=== PATIENT | female | born 1950 | race Asian ===

== ENCOUNTER 2017-07-26 06:08 | Emergency (ER) | payer OTHER ==
[~2017-07-26] VITALS: Ht 167.6 cm; Wt 53.5 kg
[2017-07-26 06:20] VITALS: BP 126/68; TEMP 97.7
== END 2017-07-26 07:38 | disposition home or self-care (01) ==
LOC: ED 06:08
DX: S42.212A Unspecified displaced fracture of surgical neck of left humerus, initial encounter for closed fracture (principal); W01.198A Fall on same level from slipping, tripping and stumbling with subsequent striking against other object, initial encounter; Y92.098 Other place in other non-institutional residence as the place of occurrence of the external cause
CPT/HCPCS: 96372; 99283; J1885

== ENCOUNTER 2017-07-29 13:39 | Emergency (ER) | payer OTHER ==
[~2017-07-29] VITALS: Ht 167.6 cm; Wt 54.4 kg
[2017-07-29 13:47] VITALS: TEMP 98.4
[2017-07-29 14:56] VITALS: BP 167/71
== END 2017-07-29 14:56 | disposition home or self-care (01) ==
LOC: ED 13:39
DX: M25.512 Pain in left shoulder (principal)
CPT/HCPCS: 99282

== ENCOUNTER 2018-08-28 14:39 | Emergency (ER) | payer OTHER ==
[~2018-08-28] VITALS: Ht 167.6 cm; Wt 54.4 kg
[2018-08-28 14:50] VITALS: BP 161/61; TEMP 97.6
[2018-08-28 15:42] LABS: PLATELET COUNT 208 K/uL (152-353)
[2018-08-28 16:06] LABS: POTASSIUM 3.8 mmol/L (3.6-5.2)
== END 2018-08-28 16:30 | disposition home or self-care (01) ==
LOC: ED 14:39
DX: B37.0 Candidal stomatitis (principal); E11.9 Type 2 diabetes mellitus without complications
CPT/HCPCS: 36415; 80053; 85027; 87070; 87077; 87186; 99283

== ENCOUNTER 2019-03-01 15:06 | Emergency (ER) | payer OTHER ==
[~2019-03-01] VITALS: Ht 167.6 cm; Wt 51.7 kg
[2019-03-01 15:20] VITALS: TEMP 99.2
[2019-03-01 16:54] VITALS: BP 132/67
== END 2019-03-01 16:54 | disposition home or self-care (01) ==
LOC: ED 15:06
DX: S90.421A Blister (nonthermal), right great toe, initial encounter (principal)
CPT/HCPCS: 90471; 90715; 96372; 99283; J0696

== ENCOUNTER 2019-03-05 09:58 | Emergency (ER) | payer OTHER ==
[~2019-03-05] VITALS: Ht 167.6 cm; Wt 52.2 kg
[2019-03-05 10:12] VITALS: BP 156/84; TEMP 98.1
== END 2019-03-05 10:44 | disposition home or self-care (01) ==
LOC: ED 09:58
DX: Z51.89 Encounter for other specified aftercare (principal); S90.421D Blister (nonthermal), right great toe, subsequent encounter

== ENCOUNTER 2022-11-04 00:13 | Emergency (ER) | payer OTHER ==
[~2022-11-04] VITALS: Ht 167.6 cm; Wt 52.2 kg
[2022-11-04 01:36] LABS: PLATELET COUNT 166 K/uL (152-353)
[2022-11-04 01:44] LABS: POTASSIUM 3.6 mmol/L (3.6-5.2)
[2022-11-04 03:00] VITALS: BP 148/73; TEMP 97.2
== END 2022-11-04 03:00 | disposition home or self-care (01) ==
LOC: ED 00:13
PROVIDERS: Emergency Medicine Emergency Medical Services
DX: R51.9 Headache, unspecified (principal); H10.89 Other conjunctivitis
CPT/HCPCS: 36415; 80048; 85027; 96360; 96361; 96374; 96375; 99284; J1885; J2270; J2405

== ENCOUNTER 2022-12-15 16:44 | Emergency (ER) | payer OTHER ==
[~2022-12-15] VITALS: Ht 167.6 cm; Wt 54.4 kg
[2022-12-15 16:48] VITALS: BP 123/84; TEMP 97.8
== END 2022-12-15 18:52 | disposition home or self-care (01) ==
LOC: ED 16:44
DX: Z53.21 Procedure and treatment not carried out due to patient leaving prior to being seen by health care provider (principal)
CPT/HCPCS: 99281

== ENCOUNTER 2023-03-18 08:05 | Emergency (ER) | payer OTHER ==
[~2023-03-18] VITALS: Ht 167.6 cm; Wt 54.4 kg
[2023-03-18 08:10] VITALS: TEMP 99.1
[2023-03-18 09:31] VITALS: BP 135/74
== END 2023-03-18 09:31 | disposition home or self-care (01) ==
LOC: ED 08:05
DX: N39.0 Urinary tract infection, site not specified (principal)
CPT/HCPCS: 81000; 87077; 87086; 87088; 87186; 99282

== ENCOUNTER 2023-03-19 19:22 | Emergency (ER) | payer OTHER ==
[~2023-03-19] VITALS: Ht 33 cm; Wt 0.5 kg
[2023-03-19 19:37] VITALS: BP 158/68; TEMP 98.2
[2023-03-19 20:05] LABS: PLATELET COUNT 311 K/uL (152-353)
[2023-03-19 20:22] LABS: POTASSIUM 3.9 mmol/L (3.6-5.2)
== END 2023-03-19 23:33 | disposition home or self-care (01) ==
LOC: ED 19:22
PROVIDERS: Emergency Medicine
DX: N39.0 Urinary tract infection, site not specified (principal)
CPT/HCPCS: 36415; 80048; 81000; 85027; 87077; 87086; 87088; 87186; 96361; 96365; 99284; J0696; J1815